=== PATIENT | female | born 1990 | race African-American/Black ===

== ENCOUNTER 2016-09-21 11:26 | Emergency (ER) | payer OTHER ==
[~2016-09-21] VITALS: Ht 165.1 cm; Wt 108.9 kg
[2016-09-21 11:46] VITALS: BP 126/82
[2016-09-21 12:26] LABS: APPEARANCE,URINE Slightly Cloudy (CLEAR); BILIRUBIN,URINE Negative (NEGATIVE); BLOOD, URINE Trace-intact Ery/uL (NEGATIVE); COLOR,URINE Yellow (YELLOW); KETONES,URINE Negative (NEGATIVE); LEUKOCYTE ESTERASE ,URINE Moderate (NEGATIVE); NITRITE, URINE Positive (NEGATIVE); PH,URINE 6.5 (5.0-8.0); PROTEIN,URINE 30 mg/dl (NEGATIVE); UGLUCOSE Negative (NEGATIVE); UROBILINOGEN,URINE 0.2 EU/dL (0.2)
[2016-09-21 12:31] LABS: PREGNANCY TEST URINE QUAL NEGATIVE (NEGATIVE)
[2016-09-21 12:50] LABS: BACTERIA,URINE Many /HPF (None Seen); RBC,URINE 0-2 /HPF (0-2); SQUAMOUS EPITHELIAL CELL,UR Few /HPF (None Seen); WBC,URINE TOO NUMEROUS TO COUN /HPF (0-3); YEAST,URINE Rare /HPF (None Seen)
[2016-09-21] MEDS ORDERED: PHENAZOPYRIDINE HCL 200 MG TABLET ONE (13:08)
[2016-09-21] MEDS ORDERED: CEPHALEXIN MONOHYDRATE 500 MG CAPSULE PO ONE ×2 (13:09→13:30)
[2016-09-21] MEDS ORDERED: PHENAZOPYRIDINE HCL 200 MG TABLET PO ONE (13:30)
== END 2016-09-21 13:17 | disposition home or self-care (01) ==
LOC: ER 11:34
DX: N39.0 Urinary tract infection, site not specified (principal)
CPT/HCPCS: 81000-TC; 84703-TC; 87086-TC; 87186-TC; A4606; Z7610

== ENCOUNTER 2018-09-03 17:11 | Emergency (ER) | payer OTHER ==
[~2018-09-03] VITALS: Ht 165.1 cm; Wt 88.5 kg
[2018-09-03 17:39] VITALS: BP 132/85
[2018-09-03] MEDS ORDERED: TDAP [DIPH/PERTUSSIS/TET] 0.5 ML VIAL IM ONE ×2 (18:00→18:11)
[2018-09-03] MEDS ORDERED: LIDOCAINE 1% INJ 50 ML MDV IJ ONE (18:00)
[2018-09-03] MEDS ORDERED: IBUPROFEN 600 MG TABLET PO ONE ×2 (18:11→18:30)
== END 2018-09-03 18:22 | disposition home or self-care (01) ==
LOC: ER 17:11
DX: L02.211 Cutaneous abscess of abdominal wall (principal); F12.10 Cannabis abuse, uncomplicated; Z23 Encounter for immunization
CPT/HCPCS: 10060; 90471; 90715; 99283; A6403

== ENCOUNTER 2018-09-05 20:51 | Emergency (ER) | payer OTHER ==
[~2018-09-05] VITALS: Ht 165.1 cm; Wt 108.9 kg
[2018-09-05 20:55] VITALS: BP 145/95
== END 2018-09-05 21:15 | disposition home or self-care (01) ==
LOC: ER 20:56
DX: L02.211 Cutaneous abscess of abdominal wall (principal)
CPT/HCPCS: Z7502

== ENCOUNTER 2019-02-15 13:53 | Emergency (ER) | payer OTHER ==
[~2019-02-15] VITALS: Ht 165.1 cm; Wt 107.5 kg
[2019-02-15 14:12] VITALS: BP 172/125
== END 2019-02-15 15:36 | disposition home or self-care (01) ==
LOC: ER 14:00
DX: B36.0 Pityriasis versicolor (principal)

== ENCOUNTER 2020-05-23 15:51 | Inpatient (IN) | payer SELFPAY ==
[~2020-05-23] VITALS: Ht 165.1 cm; Wt 113.4 kg
--- NOTE | 2020-05-23 15:51 | NUR ---
BIB SELF C/O L GROIN AND LEFT LOWER ABDOMINAL PAIN FOR 1 WEEK, TO ER BED 9, HOOKED TO MONITOR, CHANGED TO HOSP GOWN, WARM BLANKET PROVIDED, NAD NOTED. AWAITING MD PARK
--- NOTE | 2020-05-23 16:04 | NUR ---
DR SMALL AT BEDSIDE
--- NOTE | 2020-05-23 16:12 | NUR ---
PATIENT UNABLE TO PROVIDE URINE SAMPLE AT THIS TIME. MD POOLE
--- NOTE | 2020-05-23 16:20 | NUR ---
DR SMALL AT BEDSIDE
[2020-05-23] MEDS ORDERED: MORPHINE SULFATE INJ 2 MG/ML DISP.SYRIN IV ONE ×2 (16:30→20:30)
[2020-05-23 16:31] LABS: BASOPHILS # (AUTO) 0.1 /CMM (0.0-0.2); BASOPHILS % (AUTO) 0.3 % (0.0-2.0); HEMATOCRIT 35 % (33-45); HEMOGLOBIN 11.6 g/dL (11.5-14.8); LYMPHOCYTES # (AUTO) 2.4 /CMM (0.8-4.8); LYMPHOCYTES % (AUTO) 10.6 % (20.0-44.0); MEAN CORPUSCULAR HGB CONC 33 g/dl (31.0-36.0); MEAN CORPUSCULAR VOLUME 75 fL (82-100); MONOCYTES # (AUTO) 1.8 /CMM (0.1-1.30); MONOCYTES % (AUTO) 7.9 % (2.0-12.0); NEUTROPHILS # (AUTO) 18.6 /CMM (1.8-8.9); NEUTROPHILS % (AUTO) 81.2 % (43.0-81.0); PLATELET COUNT (AUTO) 448 /CMM (150-450); RED BLOOD CELL COUNT(AUTO) 4.74 MIL/uL (4.0-5.2); WHITE BLOOD COUNT (AUTO) 22.9 K/uL (4.3-11.0)
--- NOTE | 2020-05-23 16:40 | NUR ---
HOME ORGANIZER AT BEDSIDE FOR KAVIN
[2020-05-23] MEDS ORDERED: MORPHINE SULFATE INJ 4 MG/ML DISP.SYRIN ONE ×2 (16:42→20:50)
[2020-05-23 16:46] LABS: CALCIUM, SERUM 8.8 mg/dL (8.5-10.1); POTASSIUM 4.1 mmol/L (3.5-5.1)
[2020-05-23 16:52] LABS: ALBUMIN 3.3 g/dL (3.4-5.0); BILIRUBIN,DIRECT 0.4 mg/dL (0.0-0.2); TOTAL PROTEIN, SERUM 8.9 g/dL (6.4-8.2)
--- NOTE | 2020-05-23 17:00 | NUR ---
chaperoned radiotelegraphist tatiana chen during intra vaginal KAVIN
[2020-05-23] MEDS ORDERED: CEFTRIAXONE 1GM BAG (ER ONLY) 1 GM/50 ML PIGGYBACK IV ONE (17:30)
--- NOTE | 2020-05-23 17:42 | NUR ---
PATIENT STILL NOT ABLE TO PROVIDE URINE SAMPLE. MD POOLE
[2020-05-23] MEDS ORDERED: CEFTRIAXONE 1GM BAG (ER ONLY) 50 ML IV ONE (18:18)
--- NOTE | 2020-05-23 18:36 | NUR ---
URINE SAMPLE COLLECTED AND SENT TO LAB
--- NOTE | 2020-05-23 18:46 | NUR ---
PICKED UP BY ROXANA DIAZ VIA [facility] FOR CT SCAN
[2020-05-23] MEDS ORDERED: IV NS 0.9% 250 ML IV ONE (18:48)
[2020-05-23] MEDS ORDERED: IOHEXOL-300 100 ML VIAL IV ONE (18:48)
[2020-05-23 18:53] LABS: BILIRUBIN,URINE MODERATE (NEGATIVE); COLOR,URINE YELLOW (YELLOW); LEUKOCYTE ESTERASE ,URINE Negative (NEGATIVE); NITRITE, URINE Negative (NEGATIVE); PROTEIN,URINE 30 mg/dl (NEGATIVE); UGLUCOSE Negative (NEGATIVE)
[2020-05-23 18:56] LABS: BACTERIA,URINE Rare /HPF (None Seen); RBC,URINE NONE SEEN /HPF (0-2); SQUAMOUS EPITHELIAL CELL,UR Few /HPF (None Seen); WBC,URINE NONE SEEN /HPF (0-3)
--- NOTE | 2020-05-23 19:11 | NUR ---
REPORT GIVEN TO VELMA BHATT FOR LEXA
[2020-05-23] MEDS ORDERED: ENOXAPARIN SODIUM 100 MG/ML DISP.SYRIN SQ ONE (20:30)
[2020-05-23] MEDS ORDERED: ENOXAPARIN SODIUM 60 MG/0.6 ML DISP.SYRIN SQ ONE (20:48)
[2020-05-23] MEDS ORDERED: ONDANSETRON HCL/PF 4 MG/2 ML VIAL IVP PRN (21:00)
[2020-05-23] MEDS ORDERED: Z GUARD REMEDY 2 OZ OINT TP PRN (21:00)
[2020-05-23] MEDS ORDERED: MAGNESIUM HYDROXIDE 30 ML UDC PO PRN (21:00)
[2020-05-23] MEDS ORDERED: CIPROFLOXACIN HCL 250 MG TABLET PO SCH (21:00)
[2020-05-23] MEDS ORDERED: METRONIDAZOLE 500 MG TABLET PO SCH ×2 (21:00→22:53)
[2020-05-23] MEDS ORDERED: MAG HYDROX/AL HYDROX/SIMETH 30 ML UDC PO PRN (21:00)
--- NOTE | 2020-05-23 22:45 | NUR ---
REPORT GIVEN TO RAFI BHATT FOR [facility].
--- NOTE | 2020-05-23 22:45 | NUR ---
Misti pino in ED - 05/23/20 at 2301 by MARIMAR REPORT GIVEN TO IAN BHATT FOR [facility].
--- NOTE | 2020-05-23 23:00 | NUR ---
PATIENT TAKEN TO ASSIGNED ROOM FOR LEXA.
[2020-05-23] MEDS: HYDROCODONE/APAP 5/325MG TABLET PO PRN (23:36)
--- NOTE | 2020-05-23 23:45 | NUR ---
RN NOTES PT RECEIVED VIA [facility]. PT ALERT AND ORIENTED X 4. NO RESPIRATORY DISTRESS NOTED OR REPORTED. TOLERATING ROOM AIR. NO PAIN OR DISCOMFORT NOTED AT THIS TIME. PT HAS IV ACCESS ONT HE RIGHT AC 18 G RUINING NS @100 ML/HR. NO REDNESS OR SWELLING AT IV SITE. ALL NURSING NEEDS MET AT THIS TIME. SAFETY PRECAUTIONS FOLLOWED. WILL CONTINUE TO MONITOR.
[2020-05-24] VITALS (7 sets, daily range): BP systolic 143–155; BP diastolic 84–97
[2020-05-24] MEDS: ACETAMINOPHEN 325 MG TABLET PO PRN (05:02)
--- NOTE | 2020-05-24 06:28 | NUR ---
RN NOTES PT ALERT AND ORIENTED X 4. NO RESPIRATORY DISTRESS NOTED OR REPORTED. TOLERATING ROOM AIR. NO PAIN OR DISCOMFORT NOTED AT THIS TIME. PT HAS IV ACCESS ON THE RIGHT AC 18 G RUINING NS @100 ML/HR. NO REDNESS OR SWELLING AT IV SITE. ALL NURSING NEEDS MET AT THIS TIME. NORCO GIVEN FOR PAIN AND TYLENOL FOR MILD FEVER.CALL LIGHT WITHIN REACH.SAFETY PRECAUTIONS FOLLOWED. WILL ENDORSE CARE TO DAY SHIFT.
[2020-05-24 06:34] LABS: BASOPHILS % (AUTO) 0.2 % (0.0-2.0); HEMATOCRIT 33 % (33-45); HEMOGLOBIN 10.7 g/dL (11.5-14.8); LYMPHOCYTES # (AUTO) 2.2 /CMM (0.8-4.8); LYMPHOCYTES % (AUTO) 8.6 % (20.0-44.0); MEAN CORPUSCULAR HGB CONC 33 g/dl (31.0-36.0); MEAN CORPUSCULAR VOLUME 74 fL (82-100); MONOCYTES # (AUTO) 2.2 /CMM (0.1-1.30); MONOCYTES % (AUTO) 8.6 % (2.0-12.0); NEUTROPHILS # (AUTO) 21.5 /CMM (1.8-8.9); NEUTROPHILS % (AUTO) 82.6 % (43.0-81.0); PLATELET COUNT (AUTO) 390 /CMM (150-450); RED BLOOD CELL COUNT(AUTO) 4.39 MIL/uL (4.0-5.2)
[2020-05-24 07:18] LABS: CALCIUM, SERUM 8.5 mg/dL (8.5-10.1); CREATININE 0.9 mg/dL (0.6-1.3); POTASSIUM 3.9 mmol/L (3.5-5.1)
[2020-05-24 07:26] LABS: THYROID STIMULATING HORMONE 1.137 uIU/mL (0.358-3.74)
--- NOTE | 2020-05-24 07:40 | NUR ---
RN NOTES RECEIVED PATIENT IN BED SLEEPING. CHEST RISING AND FALLING. AUDIBLE SNORES HEARD, RESPIRATIONS EVEN AND UNLABORED. PT ON RA, TOLERATING WELL. NO PAIN OR DISCOMFORT REPORTED AT THIS TIME. IV ACCESS RIGHT AC 18 G PATENT SALINE LOCKED. CALL LIGHT WITHIN REACH. SAFETY PRECAUTIONS FOLLOWED. WILL ENDORSE CARE TO DAY SHIFT.
[2020-05-24] MEDS ORDERED: ENOXAPARIN SODIUM 120 MG/0.8 ML DISP.SYRIN SQ SCH (09:00)
[2020-05-24] MEDS ORDERED: CIPROFLOXACIN HCL 500 MG TABLET PO SCH (09:00)
[2020-05-24] MEDS: PANTOPRAZOLE 40 MG TABLET.DR PO SCH (09:08)
[2020-05-24] MEDS: PIPERACILLIN /TAZOBACTAM 3.375 G in IV D5W 50 ML IV SCH ×2 (12:30→18:36)
[2020-05-24] MEDS: HYDROCODONE/APAP 5/325MG TABLET PO PRN ×2 (12:31→20:16)
[2020-05-25] MEDS: PIPERACILLIN /TAZOBACTAM 3.375 G in IV D5W 50 ML IV SCH ×4 (00:08→18:06)
[2020-05-25 06:42] LABS: BASOPHILS # (AUTO) 0.1 /CMM (0.0-0.2); BASOPHILS % (AUTO) 0.2 % (0.0-2.0); HEMATOCRIT 32 % (33-45); HEMOGLOBIN 10.4 g/dL (11.5-14.8); LYMPHOCYTES # (AUTO) 2.1 /CMM (0.8-4.8); MEAN CORPUSCULAR HGB CONC 33 g/dl (31.0-36.0); MEAN CORPUSCULAR VOLUME 74 fL (82-100); MONOCYTES % (AUTO) 6.6 % (2.0-12.0); NEUTROPHILS # (AUTO) 26.1 /CMM (1.8-8.9); NEUTROPHILS % (AUTO) 86.2 % (43.0-81.0); PLATELET COUNT (AUTO) 430 /CMM (150-450); RED BLOOD CELL COUNT(AUTO) 4.31 MIL/uL (4.0-5.2)
[2020-05-25 07:01] LABS: CALCIUM, SERUM 8.6 mg/dL (8.5-10.1); CREATININE 0.9 mg/dL (0.6-1.3); MAGNESIUM 2.3 mg/dL (1.8-2.4); PHOSPHORUS 3.5 mg/dL (2.5-4.9); POTASSIUM 3.9 mmol/L (3.5-5.1)
--- NOTE | 2020-05-25 07:15 | NUR ---
MS RN NOTES PATIENT IN BED ALERT ORIENTED X 4. NO ACUTE DISTRESS NOTED. BREATHING UNLABORED. IV ACCESS PATIENT AND INTACT, NO REDNESS , NO SWELLING NOTED. SAFETY MEASURES IN PLACE. CALL LIGHT WITHIN REACH. WILL CONTINUE TO MONITOR ACCORDINGLY
[2020-05-25 07:17] LABS: WHITE BLOOD COUNT (AUTO) 30.2 K/uL (4.3-11.0)
[2020-05-25] MEDS: IV NS 0.9% 1,000 ML IV PRN (07:35)
[2020-05-25] MEDS: PANTOPRAZOLE 40 MG TABLET.DR PO SCH (07:53)
[2020-05-25 11:53] LABS: LYMPHOCYTES % (MANUAL) 9 % (16-48); MONOCYTES % (MANUAL) 5 % (0-11.0); NEUTROPHILS % (MANUAL) 86 (42-76)
[2020-05-25] MEDS: ACETAMINOPHEN 325 MG TABLET PO PRN ×2 (12:28→20:09)
--- NOTE | 2020-05-25 18:15 | NUR ---
MS BIRD RAISER NOTES ADMITTED PATIENT FROM ER REPORT GIVEN BY TIFFANIE BHATT. PATIENT ALERT ORIENTED X4.VITAL SIGNS STABLE. NO ACUTE DISTRESS NOTED. BREATHING UNLABORED. DENIED ANY PAIN. IV ACCESS PATENT AND INTACT, NO REDNESS , NO SWELLING NOTED, CURRENTLY RUNNING POTASSIUM CHLORIDE AND MAGNESIUM, .ORIENTED TO THE ROOM. SHOW HOW TO USE CALL LIGHT, PLACED WITHIN REACH. SAFETY MEASURES IN PLACE. WILL CONTINUE TO MONITOR ACCORDINGLY. Addendum: 05/25/20 at 1933 by SANDIE REID RN DISREGARD ABOVE NOTES, WRONG ENTRY
--- NOTE | 2020-05-25 19:00 | NUR ---
MS RN NOTES PATIENT IN BED ALERT ORIENTED X 4. NO ACUTE DISTRESS NOTED. BREATHING UNLABORED. IV ACCESS PATIENT AND INTACT, NO REDNESS , NO SWELLING NOTED. NEEDS ATTENDED AND ANTICIPATED. SAFETY MEASURES IN PLACE. CALL LIGHT WITHIN REACH. WILL ENDORSE TO NIGHT NURSE FOR CONTINUITY OF CARE.
[2020-05-25 20:00] VITALS: BP 165/98
[2020-05-26] MEDS: PIPERACILLIN /TAZOBACTAM 3.375 G in IV D5W 50 ML IV SCH ×5 (00:09→23:29)
[2020-05-26] MEDS: HYDROCODONE/APAP 5/325MG TABLET PO PRN ×2 (06:10→18:05)
[2020-05-26 06:26] LABS: BASOPHILS # (AUTO) 0.1 /CMM (0.0-0.2); BASOPHILS % (AUTO) 0.3 % (0.0-2.0); EOSINOPHILS % (AUTO) 0.5 % (0.0-6.0); HEMATOCRIT 32 % (33-45); HEMOGLOBIN 10.4 g/dL (11.5-14.8); LYMPHOCYTES # (AUTO) 2.3 /CMM (0.8-4.8); LYMPHOCYTES % (AUTO) 9.8 % (20.0-44.0); MEAN CORPUSCULAR HGB CONC 33 g/dl (31.0-36.0); MEAN CORPUSCULAR VOLUME 74 fL (82-100); MONOCYTES # (AUTO) 1.3 /CMM (0.1-1.30); MONOCYTES % (AUTO) 5.4 % (2.0-12.0); NEUTROPHILS # (AUTO) 20.2 /CMM (1.8-8.9); PLATELET COUNT (AUTO) 507 /CMM (150-450); RED BLOOD CELL COUNT(AUTO) 4.34 MIL/uL (4.0-5.2)
[2020-05-26 06:28] LABS: CALCIUM, SERUM 8.5 mg/dL (8.5-10.1); CREATININE 0.9 mg/dL (0.6-1.3); POTASSIUM 3.8 mmol/L (3.5-5.1)
--- NOTE | 2020-05-26 07:54 | NUR ---
MS RN OPENING NOTE\
--- NOTE | 2020-05-26 07:54 | NUR ---
MS RN OPENING NOTE PT RECEIVED RESTING IN BED, ALERT AND RESPONSIVE. PT IS A/O X 4 WITH NO C/O PAIN AT THIS TIME. PT IS ON ROOM AIR WITH NO S/SX OF SOB OR RESPIRATORY DISTRESS. PT HAS AN IV ACCESS ON LEFT AC G#18 RUNNING NS AT 100 ML/HR, PATENT, INTACT AND FLUSHING WELL WITH NO S/SX OF IRRITATION, INFLAMMATION OR INFILTRATION. PT IS AMBULATORY WITH STEADY GAIT. SAFETY MEASURES IN PLACE: BED IN LOWEST POSITION AND LOCKED WITH UPPER SIDE RAILS X2 UP. CALL LIGHT PLACED WITHIN REACH. WILL CONTINUE TO MONITOR.
[2020-05-26 08:00] VITALS: BP 131/100
[2020-05-26] MEDS: PANTOPRAZOLE 40 MG TABLET.DR PO SCH (08:14)
[2020-05-26] MEDS: IV NS 0.9% 1,000 ML IV PRN ×2 (08:14→18:55)
--- NOTE | 2020-05-26 18:27 | NUR ---
MS RN CLOSING NOTE PT LYING IN BED, AWAKE AND WATCHING TV. PT REMAINED STABLED THROUGHOUT SHIFT. PT RATES HER PAIN AT 0/10 AT THIS TIME, PAIN WAS MANAGED THROUGHOUT SHIFT. PT IS ON ROOM AIR WITH NO S/SX OF SOB OR RESPIRATORY DISTRESS. PT HAS AN IV ACCESS ON LEFT AC G#18 RUNNING NS AT 100 ML/HR, PATENT, INTACT AND FLUSHING WELL WITH NO S/SX OF IRRITATION, INFLAMMATION OR INFILTRATION. PT IS AMBULATORY WITH STEADY GAIT. ALL CARE, NEEDS, MEDICATION AND TREATMENT ADMINISTERED ORDERED. SAFETY MEASURES MAINTAINED: BED IN LOWEST, LOCKED POSITION WITH BOTH UPPER SIDE RAILS X2 UP. CALL LIGHT PLACED WITHIN REACH. WILL ENDORSE TO BONDERIZER NURSE.
[2020-05-26 20:00] VITALS: BP 163/95
--- NOTE | 2020-05-26 20:20 | NUR ---
PT AOX4, MILIAN, AMBULATES WITH A STEADY GAIT. RESPIRATIONS EVEN AND UNLABORED. DENIES SOB AND DYSPNEA. GIVEN ZOFRAN IV FOR C/O NAUSEA, NO VOMITING. NO C/O PAIN OR DISCOMFORT. ENCOURAGED TO CALL FOR ASSIST. CALL LIGHT WITHIN REACH
[2020-05-26 20:42] VITALS: BP 163/95
[2020-05-26 22:00] VITALS: BP 134/81
[2020-05-26 22:45] VITALS: BP 134/81
[2020-05-27] MEDS: ACETAMINOPHEN 325 MG TABLET PO PRN (01:37)
[2020-05-27] MEDS: IV NS 0.9% 1,000 ML IV PRN (05:54)
[2020-05-27] MEDS: PIPERACILLIN /TAZOBACTAM 3.375 G in IV D5W 50 ML IV SCH ×2 (05:55→11:52)
--- NOTE | 2020-05-27 05:59 | NUR ---
PT AOX4, MILIAN, AND AMBULATES WITH A STEADY GAIT. RESPIRATIONS EVEN AND UNLABORED. NO S/S OF SOB OR ACUTE DISTRESS. ABDOMEN SOFT AND NON TENDER. STOOL FOR O+P SENT TO LAB. C/O NAUSEA, GIVEN ZOFRAN 4 MG IV WHICH WAS EFFECTIVE. NO VOMITING NOTED. C/O OF HEADACHE 10/10 ON THE ON THE THE PAIN SCALE. GIVEN TYLENOL 650MG PO AND WAS EFFECTIVE.NO C/O NAUSEA , PAIN OR DISCOMFORT AT THIS TIME. #18 TO LAC PATENT, FLUSHES WELL AND INFUSING NS @100 ML/HR. SAFETY MAINTAINED. PT FREE FROM INJURY.
[2020-05-27 06:09] LABS: BASOPHILS % (AUTO) 0.2 % (0.0-2.0); EOSINOPHILS % (AUTO) 0.9 % (0.0-6.0); HEMATOCRIT 30 % (33-45); HEMOGLOBIN 9.6 g/dL (11.5-14.8); LYMPHOCYTES # (AUTO) 2.6 /CMM (0.8-4.8); LYMPHOCYTES % (AUTO) 14.7 % (20.0-44.0); MEAN CORPUSCULAR HGB CONC 32 g/dl (31.0-36.0); MEAN CORPUSCULAR VOLUME 75 fL (82-100); MONOCYTES % (AUTO) 5.8 % (2.0-12.0); NEUTROPHILS # (AUTO) 13.7 /CMM (1.8-8.9); NEUTROPHILS % (AUTO) 78.4 % (43.0-81.0); PLATELET COUNT (AUTO) 483 /CMM (150-450); RED BLOOD CELL COUNT(AUTO) 3.97 MIL/uL (4.0-5.2); WHITE BLOOD COUNT (AUTO) 17.5 K/uL (4.3-11.0)
[2020-05-27 06:20] LABS: CALCIUM, SERUM 8.5 mg/dL (8.5-10.1); CREATININE 0.8 mg/dL (0.6-1.3); POTASSIUM 3.7 mmol/L (3.5-5.1)
[2020-05-27 08:00] VITALS: BP 130/93
[2020-05-27] MEDS: PANTOPRAZOLE 40 MG TABLET.DR PO SCH (08:20)
--- NOTE | 2020-05-27 08:32 | NUR ---
MS RN OPENING NOTE PT RECEIVED IN ROOM, RESTING COMFORTABLY. PT IS A/O X 4 AND ABLE TO MAKE NEEDS KNOWN. NO C/O PAIN AT THIS TIME. PT REQUESTED TO TAKE A SHOWER, ACCOMPANIED BY CONTINUOUS CONVEYOR SCREEN DRIER TO SHOWER ROOM AND BROUGHT BACK TO ROOM BY CONTINUOUS CONVEYOR SCREEN DRIER. PT ON ROOM AIR WITH NO S/SX SOB AND RESPIRATORY DISTRESS AT THIS TIME. PT'S IV ACCESS ON LEFT AC G#18 IS PATENT, INTACT AND FLUSHING WELL, RUNNING NS AT 100 ML/HR WITH NO INFECTION, INFILTRATION OR IRRITATION NOTED. SAFETY MEASURES IN PLACE: BED IN LOWEST, LOCKED POSITION WITH BOTH UPPER SIDE RAILS UP X2. CALL LIGHT PLACED WITHIN REACH. WILL CONTINUE TO MONITOR.
--- NOTE | 2020-05-27 08:34 | NUR ---
MS RN NOTE ADVANCE DIET TOLERATED PER DOCTORS ORDERS. CLEAR LIQUID DIET CHANGED TO FULL LIQUID DIET. WILL CONTINUE TO MONITOR.
[2020-05-27] MEDS ORDERED: LEVO500T90 PO (10:25)
--- NOTE | 2020-05-27 15:20 | NUR ---
MS MEDICAL SOCIOLOGIST NOTE PT DISCHARGE TO HOME WITH SELF CARE AT THIS TIME. PT MEDICALLY STABLE AND CLEARED FOR DISCHARGE BY DR. VALADEZ. ALL DISCHARGE INSTRUCTIONS PROVIDED. PT VERBALIZES UNDERSTANDING. ALL CARE, NEEDS, MEDICATIONS AND TREATMENT ADMINISTERED ANTICIPATED PER ORDER. BELONGINGS ACCOUNTED FOR, SIGNED BY PT AND WITH PT. IV ACCESS REMOVED, SECURED WITH GAUZE AND TAPE WITH NO S/O BLEEDING NOTED. ID BAND REMOVED. PT ACCOMPANIED FROM UNIT BY IN STABLE CONDITION, MILLER JI. BERNA, CHARGE NURSE AND DR. KRISHNA AWARE.
== END 2020-05-27 15:34 | disposition home or self-care (01) | DRG 871 ==
LOC: ER 15:58 → TELE 22:31 → MED 05-24 08:37
PROVIDERS: ADMIT Registered Nurse; ATTEND Internal Medicine
DX: A41.9 Sepsis, unspecified organism (principal); K65.9 Peritonitis, unspecified; E43 Unspecified severe protein-calorie malnutrition; A09 Infectious gastroenteritis and colitis, unspecified; Z68.41 Body mass index [BMI] 40.0-44.9, adult; N92.0 Excessive and frequent menstruation with regular cycle; K59.00 Constipation, unspecified; E66.01 Morbid (severe) obesity due to excess calories; Z87.891 Personal history of nicotine dependence
CPT/HCPCS: 36415; 76856-TC; 80048-TC; 80061-TC; 80076-TC; 81001; 83690-TC; 83735-TC; 84100-TC; 84443-TC; 84702-TC; 84703-TC; 85025-TC; 87045-TC; 87081-TC; 87177; 87209; 93971-TC; C9803; G0378; J0696; J1650; J2270; J2405; J2543; J3490; J7030; J7040; J7050; J7060; Q9967

== ENCOUNTER 2021-03-05 14:02 | Emergency (ER) | payer OTHER ==
[~2021-03-05] VITALS: Ht 165.1 cm; Wt 104.3 kg
[~2021-03-05 14:02] MED LIST: LEVO500T90 PO
[2021-03-05] MEDS ORDERED: KETOROLAC TROMETHAMINE INJ 30 MG/ML VIAL IM ONE (14:30)
[2021-03-05] MEDS ORDERED: ACETAMINOPHEN 325 MG TABLET PO ONE (14:30)
[2021-03-05] MEDS ORDERED: ACETAMINOPHEN 325 MG TABLET ONE (14:59)
[2021-03-05] MEDS ORDERED: IBUP-1955 PO (15:30)
[2021-03-05 15:41] VITALS: BP 180/92
--- NOTE | 2021-03-05 15:46 | NUR ---
Patient discharged to home in stable condition. Written and verbal after care instructions given. Patient verbalizes understanding of instruction.
== END 2021-03-05 15:46 | disposition home or self-care (01) ==
LOC: ER 14:02
DX: S93.692A Other sprain of left foot, initial encounter (principal); W22.8XXA Striking against or struck by other objects, initial encounter; Y93.89 Activity, other specified; Y92.512 Supermarket, store or market as the place of occurrence of the external cause; Y99.0 Civilian activity done for income or pay
CPT/HCPCS: 73630-TC